=== PATIENT | female | born 1985 | race Caucasian/White ===

== ENCOUNTER → 2017-11-02 | Outpatient (CLI) | payer SELFPAY ==
[~2017-11-02] MED LIST: CYCL10 PO; DOXY100 PO; HYDACE5 PO; PROM25S PR
== END | disposition home or self-care (01) ==
LOC: LAB 18:01
DX: N89.8 Other specified noninflammatory disorders of vagina (principal)
CPT/HCPCS: 87070; 87147; 87205

== ENCOUNTER → 2019-06-28 | Outpatient (CLI) | payer OTHER ==
[2019-06-30 04:07] LABS: CHLAMYDIA TRACHOMATIS, NAA Negative (Negative); NEISSERIA GONORRHOEAE, NAA Negative (Negative)
== END ==
LOC: LAB UCHC 12:34 → LAB SHORT 12:34
PROVIDERS: Registered Nurse Community Health
DX: Z11.3 Encounter for screening for infections with a predominantly sexual mode of transmission (principal)
CPT/HCPCS: 87491; 87591

== ENCOUNTER → 2019-10-11 | Outpatient (CLI) | payer OTHER ==
[2019-10-12 21:06] LABS: CHLAMYDIA TRACHOMATIS, NAA Negative (Negative); NEISSERIA GONORRHOEAE, NAA Negative (Negative)
== END ==
LOC: LAB UCHC 12:25 → LAB SHORT 12:25
PROVIDERS: Registered Nurse Community Health
DX: N89.8 Other specified noninflammatory disorders of vagina (principal)
CPT/HCPCS: 87070; 87205; 87491; 87591

== ENCOUNTER 2020-01-02 08:33 | Inpatient (IN) | payer OTHER ==
[~2020-01-02] VITALS: Ht 160 cm; Wt 70.7 kg
[2020-01-22 11:23] LABS: BASOPHILS ABSOLUTE AUTO 0.02 K/mm3 (0.00-0.23); BASOPHILS PERCENT AUTO 0 % (0-2); EOSINOPHILS ABSOLUTE AUTO 0.01 K/mm3 (0.00-0.68); EOSINOPHILS PERCENT AUTO 0 % (0-6); Hematocrit 42.2 % (33.0-51.0); Hemoglobin 14.1 g/dL (11.5-16.0); IMMATURE GRAN ABSOLUTE AUTO 0.02 K/mm3 (0.00-0.10); IMMATURE GRAN PERCENT AUTO 0 % (0-1); LYMPHOCYTES ABSOLUTE AUTO 1.13 K/mm3 (0.84-5.20); LYMPHOCYTES PERCENT AUTO 16 % (21-46); MONOCYTES ABSOLUTE AUTO 0.51 K/mm3 (0.16-1.47); MONOCYTES PERCENT AUTO 7 % (4-13); Mean Corpuscular HGB 32.5 pg (26.0-34.0); Mean Corpuscular HGB Conc 33.4 g/dL (31.5-36.5); Mean Corpuscular Volume 97 fL (80-100); Mean Platelet Volume 10.4 fL (9.1-12.4); NEUTROPHILS ABSOLUTE AUTO 5.19 K/mm3 (1.96-9.15); NEUTROPHILS PERCENT AUTO 76 % (41-73); Platelet Count 189 K/mm3 (150-400); RDW Coefficient Variation 13.1 % (11.7-14.2); RDW Standard Deviation 46.5 fL (35.1-46.3); Red Blood Cell Count 4.34 M/mm3 (3.80-5.20); White Blood Cell Count 6.88 K/mm3 (4.00-11.30)
[2020-01-22] MEDS ORDERED: PRENATAL TABLE1 EAC2 PO (11:28)
[2020-01-22] MEDS ORDERED: PANT20 PO (11:28)
[2020-01-22] MEDS ORDERED: ACYC800 PO (11:28)
[2020-01-22] MEDS ORDERED: BUSP5 PO (11:29)
[2020-01-24 08:48] LABS: PCO2 Cord - Arterial 54.3 mmHg (40-50); PO2 Cord - Arterial 16.5 mmHg (16-20); pH Cord - Arterial 7.31 (7.28-7.35)
[2020-01-24 08:49] LABS: PCO2 Cord - Venous 42.7 mmHg (40-50); PO2 Cord - Venous 24.1 mmHg (28-32); pH Umbilical Cord - Venous 7.38 (7.26-7.35)
[2020-01-24 08:56] LABS: PCO2 Cord - Arterial 49.3 mmHg (40-50); PO2 Cord - Arterial 13.7 mmHg (16-20); pH Cord - Arterial 7.35 (7.28-7.35)
[2020-01-24 08:58] LABS: PCO2 Cord - Venous 41.3 mmHg (40-50)
[2020-01-25 04:58] LABS: BASOPHILS ABSOLUTE AUTO 0.03 K/mm3 (0.00-0.23); BASOPHILS PERCENT AUTO 0 % (0-2); EOSINOPHILS ABSOLUTE AUTO 0.01 K/mm3 (0.00-0.68); EOSINOPHILS PERCENT AUTO 0 % (0-6); Hematocrit 34.6 % (33.0-51.0); Hemoglobin 11.6 g/dL (11.5-16.0); IMMATURE GRAN ABSOLUTE AUTO 0.05 K/mm3 (0.00-0.10); IMMATURE GRAN PERCENT AUTO 0 % (0-1); LYMPHOCYTES ABSOLUTE AUTO 1.84 K/mm3 (0.84-5.20); LYMPHOCYTES PERCENT AUTO 16 % (21-46); MONOCYTES ABSOLUTE AUTO 0.79 K/mm3 (0.16-1.47); MONOCYTES PERCENT AUTO 7 % (4-13); Mean Corpuscular HGB 32.1 pg (26.0-34.0); Mean Corpuscular HGB Conc 33.5 g/dL (31.5-36.5); Mean Corpuscular Volume 96 fL (80-100); Mean Platelet Volume 10.6 fL (9.1-12.4); NEUTROPHILS ABSOLUTE AUTO 8.94 K/mm3 (1.96-9.15); NEUTROPHILS PERCENT AUTO 77 % (41-73); Platelet Count 173 K/mm3 (150-400); RDW Standard Deviation 45.3 fL (35.1-46.3); Red Blood Cell Count 3.61 M/mm3 (3.80-5.20); White Blood Cell Count 11.66 K/mm3 (4.00-11.30)
[2020-01-27] MEDS ORDERED: IBUP800 PO (10:14)
[2020-01-27] MEDS ORDERED: Percocet 5-3251 EACH PO (10:16)
[2020-01-27] MEDS ORDERED: Nicoderm Cq1 EACH TOP (10:16)
--- NOTE | 2020-01-27 12:10 | NUR ---
RX SCRIPT FROM [place] HANDED TO PT. PT SENDING HER MOTHER TO FILL THE RX
--- NOTE | 2020-01-27 16:40 | NUR ---
RN EDUCATED PT ON PP DISCHARGE INSTRUCTIONS AND NB DISCHARGE INSTRUSTIONS, PT VERBALIZED UNDERSTANDING. RN EDUCATE PT ON FOLLOW UP APT. PT VERBALIZED UNDERSTANDING TO ALL APT. PT DENIES ANY QUESTIONS OR CONCERNS. RN EDUCATED PT ON IF ANY QUESTIONS OR CONCERNS TO CALL [facility] OR PROVIDER. MATCHED BANDS WITH MOTHER AND TWINS, BANDS OFF, HUGS OFF. PT DISCHARGED WITH TWINS IN [place] WITH GRANDMOTHER AND ALL BELONGINGS. RN WALKED PT AND GRANDMOTHER AND TWINS OUT OF UNIT NBS IN [place].
== END 2020-01-27 16:23 | disposition home or self-care (01) | DRG 785 ==
LOC: BC 01-17 07:30
PROVIDERS: ADMIT Obstetrics & Gynecology
PROC: 10D00Z1 Extraction of Products of Conception, Low, Open Approach (ICD-10-PCS; principal; 2020-01-24 07:30)
PROC: 0UB70ZZ Excision of Bilateral Fallopian Tubes, Open Approach (ICD-10-PCS; 2020-01-24 07:30)
DX: O32.1XX2 Maternal care for breech presentation, fetus 2 (principal); O30.043 Twin pregnancy, dichorionic/diamniotic, third trimester; Z37.2 Twins, both liveborn; Z3A.38 38 weeks gestation of pregnancy; O99.334 Smoking (tobacco) complicating childbirth; F17.210 Nicotine dependence, cigarettes, uncomplicated
CPT/HCPCS: 36415; 82803; 85025; 86850; 86900; 86901; 88302; 88307; 90707; C9113; J0690; J1100; J1885; J2210; J2370; J2405; J2590; J2704; J2765; J3010; J3475; J7120

== ENCOUNTER → 2020-01-02 | Outpatient (CLI) | payer OTHER | LOC: LAB 18:17 → LAB SHORT 18:17 | DX: O30.042 Twin pregnancy, dichorionic/diamniotic, second trimester (principal) | CPT/HCPCS: 87081; 87653 ==

== ENCOUNTER 2021-06-20 09:02 | Emergency (ER) | payer OTHER ==
[~2021-06-20] VITALS: Ht 160 cm; Wt 56.2 kg
[~2021-06-20 09:02] MED LIST changes: +ACYC800 PO; +BUSP5 PO; +IBUP800 PO; +Nicoderm Cq1 EACH TOP; +PANT20 PO; +PRENATAL TABLE1 EAC2 PO; +Percocet 5-3251 EACH PO
[2021-06-20 09:57] LABS: Source, Urine Clean Catch
[2021-06-20 10:00] LABS: Blood, Urine 1+ (Neg); Glucose Qualitative, Urine Neg (Neg); Ketones, Urine 4+ (Neg); Leukocyte Esterase, Urine 2+ (Neg); Nitrite, Urine Pos (Neg); Protein, Urine 2+ (Neg); Urobilinogen, Urine 2+ (Normal)
[2021-06-20 10:10] LABS: Bilirubin, Urine 1+ (Neg)
[2021-06-20 10:11] LABS: Appearance, Urine Hazy (Clear); Color, Urine Amber (P-Yellow)
[2021-06-20 10:19] LABS: BASOPHILS ABSOLUTE AUTO 0.02 K/mm3 (0.00-0.23); BASOPHILS PERCENT AUTO 0 % (0-2); EOSINOPHILS ABSOLUTE AUTO 0.11 K/mm3 (0.00-0.68); EOSINOPHILS PERCENT AUTO 1 % (0-6); Hematocrit 44.2 % (33.0-51.0); Hemoglobin 15.1 g/dL (11.5-16.0); IMMATURE GRAN ABSOLUTE AUTO 0.03 K/mm3 (0.00-0.10); IMMATURE GRAN PERCENT AUTO 0 % (0-1); LYMPHOCYTES ABSOLUTE AUTO 0.27 K/mm3 (0.84-5.20); LYMPHOCYTES PERCENT AUTO 3 % (21-46); MONOCYTES ABSOLUTE AUTO 0.55 K/mm3 (0.16-1.47); MONOCYTES PERCENT AUTO 6 % (4-13); Mean Corpuscular HGB 31.6 pg (26.0-34.0); Mean Corpuscular HGB Conc 34.2 g/dL (31.5-36.5); Mean Corpuscular Volume 93 fL (80-100); Mean Platelet Volume 9.7 fL (9.1-12.4); NEUTROPHILS ABSOLUTE AUTO 8.73 K/mm3 (1.96-9.15); NEUTROPHILS PERCENT AUTO 90 % (41-73); Platelet Count 209 K/mm3 (150-400); RDW Coefficient Variation 11.9 % (11.7-14.2); RDW Standard Deviation 40.7 fL (35.1-46.3); Red Blood Cell Count 4.78 M/mm3 (3.80-5.20); White Blood Cell Count 9.71 K/mm3 (4.00-11.30)
[2021-06-20 10:37] LABS: Anion Gap 8 mmol/L (6-16); Blood Urea Nitrogen 9 mg/dL (8-24); Bun/Creatinine Ratio 12.6 (12.0-20.0); CO2, Blood 26 mmol/L (21-32); Calcium, Blood 8.9 mg/dL (8.5-10.1); Chloride, Blood 101 mmol/L (98-108); Creatinine, Blood 0.71 mg/dL (0.40-1.00); Glomerular Filtration Rate >60 (60-); Glucose, Blood 101 mg/dL (70-99); Potassium, Blood 3.3 mmol/L (3.5-5.5); Sodium, Blood 135 mmol/L (136-145)
[2021-06-20 10:49] LABS: SARS-Cov-2 (COVID-19) PCR, MMC NEGATIVE (NEGATIVE)
[2021-06-20] MEDS ORDERED: CEPH500 PO (12:05)
[2021-06-20] MEDS ORDERED: ONDA4ODT MM (12:05)
[2021-06-20] MEDS ORDERED: MONDOXYNE NL100 MG PO (12:24)
[2021-06-20] MEDS ORDERED: Diflucan150 MG PO (12:24)
== END 2021-06-20 12:35 | disposition home or self-care (01) ==
LOC: ER 09:02
PROVIDERS: Physician Assistant
DX: N39.0 Urinary tract infection, site not specified (principal); F17.200 Nicotine dependence, unspecified, uncomplicated; Z20.822 Contact with and (suspected) exposure to COVID-19
CPT/HCPCS: 36415; 80048; 85025; 96374; 96375; 99283-25; J1885; J2405; J7030; U0004

== ENCOUNTER → 2022-03-03 | Outpatient (CLI) | payer OTHER ==
[~2022-03-03] MED LIST changes: +CEPH500 PO; +Diflucan150 MG PO; +MONDOXYNE NL100 MG PO; +ONDA4ODT MM
== END | disposition home or self-care (01) ==
LOC: PLD 15:14 → LAB 15:14 → LAB SHORT 15:14
DX: D23.39 Other benign neoplasm of skin of other parts of face (principal)
CPT/HCPCS: 88305